=== PATIENT | female | born 1965 | race Hispanic/Latino ===

== ENCOUNTER 2023-03-05 13:51 | Outpatient (CLI) | payer BC ==
[2023-03-05 16:15] LABS: Hemoglobin 11.6 g/dL (12.0-15.5); Mean Corpuscular HGB CONC 30.4 g/dL (32.0-36.0); Mean Corpuscular Hemoglobin 27.8 pg (27.0-33.0); Mean Corpuscular Volume 91.1 fl (81.6-98.3); Mean Platelet Volume 10.8 fl (7.4-10.4); Platelet Count 399 10x3/uL (150-450); RBC Distribution Width 13.8 % (11.5-14.5); Red Blood Cell (RBC) Count 4.18 10x6/uL (3.90-5.03); White Blood Cell (WBC) Count 11.6 10x3/uL (3.5-10.5)
[2023-03-05 16:20] LABS: Prothrombin Time 10.4 sec (9.5-12.1)
[2023-03-05 16:25] LABS: Anion Gap 18 mmol/L (10-20); BUN (Urea Nitrogen) 15 mg/dL (9.8-20.1); Calc. Creatinine Clearance 0 mL/min (70-130); Calcium 9.4 mg/dL (7.8-10.44); Carbon Dioxide 23 mmol/L (22-29); Chloride 104 mmol/L (98-107); Estimated GFR 97; Glucose 105 mg/dL (70-105); Potassium 3.9 mmol/L (3.5-5.1); Sodium 141 mmol/L (136-145)
== END 2023-03-05 13:52 | disposition home or self-care (01) ==
LOC: LABBT 13:51
PROVIDERS: ATTEND Orthopaedic Surgery
DX: Z01.812 Encounter for preprocedural laboratory examination (principal); M17.12 Unilateral primary osteoarthritis, left knee
CPT/HCPCS: 80048; 85027; 85610; 87081

== ENCOUNTER 2023-03-09 09:53 | Inpatient (IN) | payer BC ==
[2023-03-09] MEDS ORDERED: Midazolam HCl 2 mg/2 ml Vial ONE (11:30)
[2023-03-09] MEDS ORDERED: Bupivacaine PF 0.5% 30 ML VIAL ONE (11:30)
[2023-03-09] MEDS ORDERED: fentaNYL 50 mcg/mL 1 mL Vial ONE ×5 (11:30→16:16)
[2023-03-09] MEDS ORDERED: Lidocaine 1% (PF) 30 ML VIAL ONE (11:30)
[2023-03-09] MEDS ORDERED: fentaNYL 50 mcg/mL 1 mL Vial SLOW IVP PRN (12:44)
[2023-03-09] MEDS ORDERED: Ondansetron PF 4 MG/2 ML Vial IVP PRN (12:45)
[2023-03-09] MEDS ORDERED: Ropivacaine 0.2% 550 ML 550 ML NERVE BLCK SCH (12:45)
[2023-03-09] MEDS ORDERED: Promethazine HCl 25 MG/ML VIAL IM PRN ×2 (12:45→14:28)
[2023-03-09] MEDS ORDERED: HYDROcodone/Acetaminophen 10/325 mg Tablet PO PRN ×2 (12:45)
[2023-03-09] MEDS ORDERED: traMADol HCl 50 MG TAB PO PRN ×2 (12:45)
[2023-03-09] MEDS ORDERED: Zolpidem Tartrate 5 MG TAB PO PRN (12:45)
[2023-03-09] MEDS ORDERED: Sodium Chloride 0.9% 100 ML ONE (13:07)
[2023-03-09] MEDS ORDERED: CEFAZOLIN 2 GM VIAL ONE (13:07)
[2023-03-09] MEDS ORDERED: Morphine 2 MG/ML VIAL SLOW IVP PRN (13:18)
[2023-03-09] MEDS ORDERED: TETANUS, DIPHTHERIA TOX,ADULT (TDVAX) 0.5 ML VIAL IM ONE (13:18)
[2023-03-09] MEDS ORDERED: Morphine 4 MG/ML VIAL SLOW IVP PRN (13:18)
[2023-03-09] MEDS ORDERED: PHENYLEPHRINE-NS 100 MCG/ML 10 ML SYRINGE ONE (13:20)
[2023-03-09] MEDS ORDERED: Dexamethasone 20 MG/5 ML VIAL ONE (13:20)
[2023-03-09] MEDS ORDERED: PROPOFOL 200 MG/20 ML VIAL ONE (13:20)
[2023-03-09] MEDS ORDERED: Lidocaine 1% PF 5 ML VIAL ONE (13:20)
[2023-03-09] MEDS ORDERED: Ondansetron PF 4 MG/2 ML Vial ONE (13:20)
[2023-03-09] MEDS ORDERED: Glycopyrrolate 0.2 MG/ML 5 ML SYRINGE ONE (13:20)
[2023-03-09] MEDS ORDERED: Communication Order-Pharmacy FS SCH (13:30)
[2023-03-09] MEDS ORDERED: HYDROmorphone 2 MG/ML VIAL ONE (13:54)
[2023-03-09] MEDS ORDERED: Tranexamic Acid 1,000 MG/10 ML VIAL ONE ×2 (13:58→15:25)
[2023-03-09] MEDS ORDERED: Bupivacaine HCl 0.5%/Epinephrine 1:200,000/PF 30 ml Vial ONE (14:09)
[2023-03-09] MEDS ORDERED: HYDROmorphone 2 MG/ML VIAL SLOW IVP PRN (14:28)
[2023-03-09] MEDS ORDERED: Ondansetron HCl/PF 4 MG/2 ML Vial IVP PRN (14:28)
[2023-03-09] MEDS ORDERED: Fentanyl CADD 100 ML IVPB SCH (16:00)
[2023-03-09] MEDS ORDERED: diphenhydrAMINE 50 MG/ML VIAL IM/IV PRN (16:00)
[2023-03-09] MEDS ORDERED: Naloxone HCl 0.4 mg/ml Vial IV PRN (16:00)
[2023-03-09] MEDS ORDERED: diphenhydrAMINE 25 MG CAP PO PRN (16:00)
[2023-03-09] MEDS ORDERED: Albuterol 200 PUFF (6.7GM INHALER) INH PRN (16:47)
[2023-03-09] MEDS: Ketorolac Tromethamine 30 MG/ML VIAL IVP SCH ×2 (18:04→23:28)
[2023-03-09 18:27] VITALS: BMI 47.6
[2023-03-09] MEDS: Aspirin 81 mg Enteric Coated Tablet PO SCH (20:39)
[2023-03-09] MEDS: CEFAZOLIN 2 GM in Sodium Chloride 0.9% 100 ML IVPB SCH (20:39)
[2023-03-10] MEDS: Ketorolac Tromethamine 30 MG/ML VIAL IVP SCH ×2 (05:33→10:44)
[2023-03-10] MEDS: CEFAZOLIN 2 GM in Sodium Chloride 0.9% 100 ML IVPB SCH (05:33)
[2023-03-10] MEDS: Aspirin 81 mg Enteric Coated Tablet PO SCH (08:23)
[2023-03-10] MEDS ORDERED: HYDROcodone/Acetaminophen 10/325 mg Tablet PO PRN ×2 (09:42→09:43)
[2023-03-10 12:30] VITALS: BP 169/73; TEMP 98.2
== END 2023-03-10 14:30 | disposition home or self-care (01) | DRG 470 ==
LOC: SDC 09:53 → SJJU 17:05
PROVIDERS: ADMIT Orthopaedic Surgery; ATTEND Orthopaedic Surgery
PROC: 0SRD0J9 Replacement of Left Knee Joint with Synthetic Substitute, Cemented, Open Approach (ICD-10-PCS; principal; 2023-03-09)
DX: M17.12 Unilateral primary osteoarthritis, left knee (principal); J45.909 Unspecified asthma, uncomplicated; Z96.651 Presence of right artificial knee joint; Z79.899 Other long term (current) drug therapy
CPT/HCPCS: A4306; C1713; C1776; J1100; J1170; J1885; J2001; J2250; J2405; J2704; J2795; J3010; J3490; S0020

== ENCOUNTER 2024-11-10 09:25 | Emergency (ER) | payer BC ==
[~2024-11-10 09:25] MED LIST: Iopamidol-370 76% 500 ML MDV (1 ML CHARGE) ONE
[2024-11-10 10:28] LABS: Mean Corpuscular HGB CONC 33.3 g/dL (32.0-36.0); Mean Corpuscular Hemoglobin 28.6 pg (27.0-31.0); Mean Corpuscular Volume 85.7 fL (78.0-98.0); Mean Platelet Volume 10.3 fL (7.4-10.4); Platelet Count 187 10x3/uL (130-400); RBC Distribution Width 13.1 % (11.5-14.5); Red Blood Cell (RBC) Count 4.55 mill/uL (4.20-5.40)
[2024-11-10 10:42] LABS: ALT (SGPT) 25 U/L (8-55); AST (SGOT) 21 U/L (5-34); Alkaline Phosphatase 77 U/L (40-110); Anion Gap 14 mmol/L (10-20); BUN (Urea Nitrogen) 15 mg/dL (9.8-20.1); Bilirubin, Total 0.3 mg/dL (0.2-1.2); Calc. Creatinine Clearance 0 mL/min (70-130); Calcium 8.8 mg/dL (7.8-10.44); Carbon Dioxide 20 mmol/L (22-29); Chloride 103 mmol/L (98-107); Estimated GFR 93; Globulin 3.9 g/dL (2.4-3.5); Glucose 99 mg/dL (70-105); Lipase 13 U/L (8-78); Potassium 3.4 mmol/L (3.5-5.1); Protein, Total 6.9 g/dL (6.0-8.3); Sodium 134 mmol/L (136-145)
[2024-11-10] MEDS ORDERED: Ondansetron PF 4 MG/2 ML Vial ONE (10:46)
[2024-11-10] MEDS ORDERED: Morphine 4 MG/ML VIAL ONE (10:46)
[2024-11-10 10:51] LABS: Bilirubin Negative (Negative); Blood, Urine Negative (Negative); CAUTI Indications for Culture Alt mental st,lethar; Clarity Turbid (Clear); Glucose, Urine (Dipstick) Normal (Negative); Ketone, Urine 40 mg/dL (Negative); Leukocyte 500 Leu/uL (Negative); Nitrite Negative (Negative); Protein, Urine (Dipstick) 20 mg/dL (Neg-Trace); RBC/HPF 0-3 HPF (0-3); Urobilinogen Normal mg/dL (Less than 2)
[2024-11-10 10:53] LABS: Bacteria/HPF 1+ HPF (None Seen); Urine Culture Reflex Yes Yes
[2024-11-10 11:15] LABS: #Basophils 0.13 10x3/uL (0.0-0.2); %Basophils 0.7 % (0.0-1.0); %Eosinophils 7.6 % (0.0-10.0); %Lymphocytes 13.4 % (21.0-51.0); %Monocytes 6.9 % (0.0-10.0); %Neutrophils 64.6 % (42.0-75.0); Band 2 % (5-11); Eosinophils 4 % (0-10); Lymphocytes 16 % (21-51); Metamyelocyte 1 % (0-0); Monocytes 4 % (0-10); Neutrophil 70 % (42-75); Plasma Cells 0 % (0-0); Platelet Adequacy Comment Appears Adequate; Polychromasia SLIGHT = 2-3 cells (100X) (0-2/hpf); Reactive Lymphocytes 3 % (0-10); Total Cell Count 100
[2024-11-10] MEDS ORDERED: Sodium Chloride 0.9% 100 ML ONE (12:17)
[2024-11-10] MEDS ORDERED: cefTRIAXone (ROCEPHIN) 1 GM VIAL ONE (12:17)
== END 2024-11-10 12:49 | disposition home or self-care (01) ==
LOC: ERS 09:25
DX: N10 Acute pyelonephritis (principal)
CPT/HCPCS: 36415; 74177; 80053; 81001; 83690; 85025; 87086; 96361; 96365; 96375; J0696; J2272; J2405; Q9967